=== PATIENT | female | born 1935 | race Caucasian/White ===

== ENCOUNTER → 2017-01-21 | Outpatient (CLI) | payer MEDICARE ==
[2015-02-09 12:30] VITALS: BP 129/75
[~2017-01-21] MED LIST: LISI40TA PO; METF500T4 PO; METO50TA2 PO; PRAV40TA2 PO
--- NOTE | 2017-01-21 14:28 | RAD ---
DATE: 01/21/2017. EXAM: DIGITAL SCREEN BILAT W/CAD HISTORY: Screening COMPARISON: One year earlier This study was interpreted with the benefit of Computerized Aided Detection (CAD). FINDINGS: The breast parenchyma shows scattered fibroglandular densities. Breast parenchyma level B. There has not been a significant change in the appearance of the breasts compared to the previous exam. Occasional benign-appearing calcifications are noted. Biopsy clips are noted in the left breast. Lymph nodes are noted in both axilla IMPRESSION: Benign findings BI-RADS CATEGORY: 2 BENIGN FINDING(S) RECOMMENDED FOLLOW-UP: 12M 12 MONTH FOLLOW-UP PQRS compliance statement: Patient information was entered into a reminder system with a target due date 01/21/2018 for the next mammogram. Mammography is a sensitive method for finding small breast cancers, but it does not detect them all and is not a substitute for careful clinical examination. A negative mammogram does not negate a clinically suspicious finding and should not result in delay in biopsying a clinically suspicious abnormality. "Our facility is accredited by the [employer] Mammography [employer]."
== END | disposition home or self-care (01) ==
LOC: MAMMO 12:50
PROVIDERS: ATTEND Family Medicine
DX: Z12.31 Encounter for screening mammogram for malignant neoplasm of breast (principal)
CPT/HCPCS: G0202; 77067

== ENCOUNTER → 2018-02-09 | Outpatient (CLI) | payer MEDICARE | END | disposition home or self-care (01) | LOC: MAMMO 13:10 | DX: Z12.31 Encounter for screening mammogram for malignant neoplasm of breast (principal) | CPT/HCPCS: 77063; 77067 ==

== ENCOUNTER 2018-02-15 02:57 | Inpatient (IN) | payer MEDICARE ==
[2018-02-15] MEDS ORDERED: ONDANSETRON PF 4 MG/2 ML VIAL. (03:20)
[2018-02-15] MEDS: IV NORMAL SALINE 1000ML BAG 1,000 ML IV ×5 (03:25→21:31)
[2018-02-15] MEDS: ONDANSETRON PF 4 MG/2 ML VIAL. IV (03:25)
[2018-02-15 03:27] LABS: BASO % 0 % (0-3); EOS % 0 % (0-3); HEMATOCRIT 37.2 % (36.0-47.0); LYMPH % 11 % (24-48); MEAN CORPUSCULAR HEMOGLOBIN 27 pg (25-35); MEAN CORPUSCULAR HGB CONC 32 g/dL (31-37); MEAN CORPUSCULAR VOLUME 85 fL (79-100); MONO # 0.2 x10^3/uL (0.0-1.1); MONO % 2 % (0-9); NEUT # 7.9 x10^3uL (1.8-7.7); NEUT % 87 % (31-73); PLATELET COUNT 424 x10^3/uL (140-400); RED CELL DISTRIBUTION WIDTH 16.2 % (11.5-14.5); WHITE BLOOD COUNT 9.1 x10^3/uL (4.0-11.0)
[2018-02-15 03:28] LABS: ADD MAN DIFF? YES
[2018-02-15 03:38] LABS: ANION GAP 13 (6-14); BLOOD UREA NITROGEN 17 mg/dL (7-20); BUN/CREATININE RATIO 14 (6-20); CALCIUM 9.9 mg/dL (8.5-10.1); CARBON DIOXIDE 30 mmol/L (21-32); CHLORIDE 103 mmol/L (98-107); CREATININE 1.2 mg/dL (0.6-1.0); GFR 43.2; GLUCOSE 354 mg/dL (70-99); POTASSIUM 3.3 mmol/L (3.5-5.1); SODIUM 146 mmol/L (136-145)
[2018-02-15 03:44] LABS: ALBUMIN 3.6 g/dL (3.4-5.0); ALBUMIN/GLOBULIN RATIO 0.8 (1.0-1.7); ALK PHOS 76 U/L (46-116); ALT (SGPT) 21 U/L (14-59); LIPASE 199 U/L (73-393); TOTAL BILIRUBIN 0.6 mg/dL (0.2-1.0); TOTAL PROTEIN 8.2 g/dL (6.4-8.2)
[2018-02-15 03:47] LABS: TROPONINI < 0.017 ng/mL (0.000-0.055)
[2018-02-15] MEDS: FAMOTIDINE 20 MG/2 ML VIAL IVP ×2 (03:57→09:24)
[2018-02-15] MEDS: fentaNYL PF VIAL 100 MCG/2 ML VIAL IV ×2 (03:57→05:10)
[2018-02-15 03:59] LABS: AST (SGOT) 15 U/L (15-37)
[2018-02-15 04:03] LABS: % LYMPHS 12 % (24-48); % MONOS 2 % (0-10); % SEGS 86 % (35-66); PLT ESTIMATE ADEQUATE (ADEQUATE)
[2018-02-15] MEDS: METOCLOPRAMIDE HCL 10 MG/2 ML VIAL. IV (04:15)
[2018-02-15] MEDS: cloNIDine HCL 0.2 MG TABLET PO (04:40)
[2018-02-15] MEDS ORDERED: cloNIDine HCL 0.1 MG TABLET (04:44)
[2018-02-15] MEDS ORDERED: ONDANSETRON PF 4 MG/2 ML VIAL. IV (05:45)
[2018-02-15] MEDS ORDERED: fentaNYL PF VIAL 100 MCG/2 ML VIAL IV ×3 (05:45→13:30)
[2018-02-15] MEDS: C.DIFF MED SCREEN BY RX. MC (09:26)
[2018-02-15 13:11] LABS: POC GLUCOSE 163 mg/dL (70-99)
[2018-02-15] MEDS: IV RINGERS,LACTATED 1000ML 1,000 ML IV ×2 (13:21→21:21)
[2018-02-15] MEDS ORDERED: LIDOCAINE 1% PF 2 ML VIAL. ID (13:30)
[2018-02-15] MEDS ORDERED: MIDAZOLAM HCL/PF 2 MG/2 ML VIAL. IV (13:30)
[2018-02-15] MEDS ORDERED: LIDOCAINE 2% 100 MG/5 ML SYRINGE. (13:56)
[2018-02-15] MEDS ORDERED: PROPOFOL 20 ML IV (13:56)
[2018-02-15] MEDS: PANTOPRAZOLE 40 MG TABLET.DR. PO (16:10)
[2018-02-15] MEDS: POLYETHYLENE GLYCOL 3350 17 GM PACKET. PO (16:10)
[2018-02-15] MEDS: metFORMIN 500 MG TABLET PO (21:31)
[2018-02-15] MEDS: ATORVASTATIN CALCIUM 20 MG TABLET PO (21:31)
[2018-02-15] MEDS: METOPROLOL TART IMMED RELEASE 50 MG TABLET. PO (21:31)
[2018-02-16] MEDS: IV NORMAL SALINE 1000ML BAG 1,000 ML IV (01:45)
[2018-02-16 04:57] LABS: ADD MAN DIFF? NO
[2018-02-16 05:03] LABS: BASO % 1 % (0-3); EOS % 0 % (0-3); HEMATOCRIT 28.7 % (36.0-47.0); HEMOGLOBIN 9.3 g/dL (12.0-15.5); LYMPH # 2.5 x10^3/uL (1.0-4.8); LYMPH % 29 % (24-48); MEAN CORPUSCULAR HEMOGLOBIN 28 pg (25-35); MEAN CORPUSCULAR HGB CONC 33 g/dL (31-37); MEAN CORPUSCULAR VOLUME 86 fL (79-100); MONO # 0.6 x10^3/uL (0.0-1.1); MONO % 7 % (0-9); NEUT # 5.5 x10^3uL (1.8-7.7); NEUT % 63 % (31-73); PLATELET COUNT 303 x10^3/uL (140-400); RED BLOOD COUNT 3.35 x10^6/uL (3.50-5.40); RED CELL DISTRIBUTION WIDTH 16.5 % (11.5-14.5); WHITE BLOOD COUNT 8.7 x10^3/uL (4.0-11.0)
[2018-02-16 05:39] LABS: ALBUMIN 2.6 g/dL (3.4-5.0); ALBUMIN/GLOBULIN RATIO 0.8 (1.0-1.7); ALK PHOS 58 U/L (46-116); ALT (SGPT) 18 U/L (14-59); ANION GAP 7 (6-14); AST (SGOT) 25 U/L (15-37); BLOOD UREA NITROGEN 13 mg/dL (7-20); BUN/CREATININE RATIO 14 (6-20); CALCIUM 8.3 mg/dL (8.5-10.1); CARBON DIOXIDE 25 mmol/L (21-32); CHLORIDE 111 mmol/L (98-107); CREATININE 0.9 mg/dL (0.6-1.0); GFR 60.2; GLUCOSE 121 mg/dL (70-99); POTASSIUM 3.3 mmol/L (3.5-5.1); SODIUM 143 mmol/L (136-145); TOTAL BILIRUBIN 0.6 mg/dL (0.2-1.0); TOTAL PROTEIN 5.8 g/dL (6.4-8.2)
[2018-02-16] MEDS: SIMETHICONE/SOD BICARB/CITRIC ACID PACKET. PO (07:30)
[2018-02-16] MEDS: BARIUM SULFATE 340 GM SUSPENSION. PO (07:30)
[2018-02-16] MEDS: BARIUM SULFATE 60% 355 ML SUSP PO (07:53)
[2018-02-16] MEDS: metFORMIN 500 MG TABLET PO ×2 (08:05→17:00)
[2018-02-16] MEDS: PANTOPRAZOLE 40 MG TABLET.DR. PO (08:05)
[2018-02-16] MEDS: POLYETHYLENE GLYCOL 3350 17 GM PACKET. PO (08:06)
[2018-02-16] MEDS: METOPROLOL TART IMMED RELEASE 50 MG TABLET. PO ×2 (08:06→20:57)
[2018-02-16] MEDS: LISINOPRIL 20 MG TABLET PO (08:07)
[2018-02-16] MEDS: ATORVASTATIN CALCIUM 20 MG TABLET PO (20:57)
[2018-02-17] MEDS ORDERED: LIDOCAINE 1% PF 2 ML VIAL. ID (07:00)
[2018-02-17] MEDS ORDERED: HYDROmorphone 2 MG/ML VIAL IV (07:00)
[2018-02-17] MEDS ORDERED: fentaNYL PF VIAL 100 MCG/2 ML VIAL IV ×2 (07:00)
[2018-02-17] MEDS ORDERED: PROCHLORPERAZINE 10 MG/2 ML VIAL. IV (07:00)
[2018-02-17] MEDS ORDERED: ONDANSETRON PF 4 MG/2 ML VIAL. IV ×2 (07:00→12:45)
[2018-02-17] MEDS ORDERED: MORPHINE SULFATE 4 MG/ML DISP.SYRIN. IV (07:00)
[2018-02-17] MEDS: PANTOPRAZOLE 40 MG TABLET.DR. PO (07:30)
[2018-02-17] MEDS: metFORMIN 500 MG TABLET PO ×2 (08:00→17:00)
[2018-02-17] MEDS ORDERED: fentaNYL PF VIAL 250 MCG/5 ML VIAL (08:04)
[2018-02-17] MEDS ORDERED: ROCURONIUM 100 MG/10 ML VIAL. (08:05)
[2018-02-17] MEDS ORDERED: SUCCINYLCHOLINE 200 MG/10 ML VIAL. (08:05)
[2018-02-17] MEDS ORDERED: MIDAZOLAM HCL/PF 2 MG/2 ML VIAL. (08:05)
[2018-02-17] MEDS: IV RINGERS,LACTATED 1000ML 1,000 ML IV ×2 (08:06→11:48)
[2018-02-17] MEDS ORDERED: DESFLURANE > 120 MINUTES IH (08:08)
[2018-02-17] MEDS ORDERED: DEXAMETHASONE SOD PHOS 20 MG/5 ML VIAL. (08:09)
[2018-02-17] MEDS ORDERED: PROPOFOL 20 ML IV (08:09)
[2018-02-17] MEDS ORDERED: FAMOTIDINE 20 MG/2 ML VIAL (08:09)
[2018-02-17] MEDS ORDERED: PHENYLEPHRINE 10 MG/ML VIAL. (08:09)
[2018-02-17] MEDS ORDERED: ONDANSETRON PF 4 MG/2 ML VIAL. (08:09)
[2018-02-17 08:11] LABS: POC GLUCOSE 122 mg/dL (70-99)
[2018-02-17] MEDS: SCOPOLAMINE 1.5MG PATCH. TD (08:17)
[2018-02-17] MEDS ORDERED: ESMOLOL 100 MG/10 ML VIAL. IV ×2 (08:31→08:38)
[2018-02-17] MEDS ORDERED: LABETALOL 20 MG/4 ML DISP.SYRIN. (08:33)
[2018-02-17] MEDS: LISINOPRIL 20 MG TABLET PO (09:00)
[2018-02-17] MEDS: POLYETHYLENE GLYCOL 3350 17 GM PACKET. PO (09:00)
[2018-02-17] MEDS: METOPROLOL TART IMMED RELEASE 50 MG TABLET. PO ×2 (09:00→20:52)
[2018-02-17] MEDS: BUPIVAC MPF-EPI 0.5%-1:200000 30 ML VIAL. INJ (09:03)
[2018-02-17] MEDS ORDERED: GLYCOPYRROLATE 1 MG/5 ML VIAL. (09:42)
[2018-02-17] MEDS ORDERED: NEOSTIGMINE 10 MG/10 ML VIAL. (09:42)
[2018-02-17 12:09] LABS: POC GLUCOSE 200 mg/dL (70-99)
[2018-02-17] MEDS: IV 1/2 NORMAL SALINE 1,000 ML IV (13:12)
[2018-02-17] MEDS: fentaNYL PF VIAL 100 MCG/2 ML VIAL IV ×4 (13:55→22:40)
[2018-02-17 17:07] LABS: POC GLUCOSE 191 mg/dL (70-99)
[2018-02-17] MEDS: ATORVASTATIN CALCIUM 20 MG TABLET PO (20:50)
[2018-02-18] MEDS: IV 1/2 NORMAL SALINE 1,000 ML IV ×2 (02:53→17:09)
[2018-02-18] MEDS: PANTOPRAZOLE 40 MG TABLET.DR. PO (07:44)
[2018-02-18 08:10] LABS: POC GLUCOSE 136 mg/dL (70-99)
[2018-02-18] MEDS: POLYETHYLENE GLYCOL 3350 17 GM PACKET. PO (08:59)
[2018-02-18] MEDS: metFORMIN 500 MG TABLET PO ×2 (09:00→17:10)
[2018-02-18] MEDS: METOPROLOL TART IMMED RELEASE 50 MG TABLET. PO ×2 (09:00→21:45)
[2018-02-18] MEDS: LISINOPRIL 20 MG TABLET PO (09:02)
[2018-02-18] MEDS: fentaNYL PF VIAL 100 MCG/2 ML VIAL IV ×4 (09:05→17:10)
[2018-02-18] MEDS ORDERED: HYDROcodon/APAP 7.5/325MG ORAL 15 ML SOLUTION PO (10:30)
[2018-02-18 16:30] LABS: POC GLUCOSE 169 mg/dL (70-99)
[2018-02-18 20:02] LABS: POC GLUCOSE 134 mg/dL (70-99)
[2018-02-18 21:08] LABS: POC GLUCOSE 176 mg/dL (70-99)
[2018-02-18] MEDS: ATORVASTATIN CALCIUM 20 MG TABLET PO (21:44)
[2018-02-19] MEDS: fentaNYL PF VIAL 100 MCG/2 ML VIAL IV (00:57)
[2018-02-19] MEDS: IV 1/2 NORMAL SALINE 1,000 ML IV ×2 (06:46→18:05)
[2018-02-19] MEDS: PANTOPRAZOLE 40 MG TABLET.DR. PO (06:46)
[2018-02-19 07:45] LABS: POC GLUCOSE 130 mg/dL (70-99)
[2018-02-19] MEDS: metFORMIN 500 MG TABLET PO ×2 (08:24→17:24)
[2018-02-19] MEDS: METOPROLOL TART IMMED RELEASE 50 MG TABLET. PO ×2 (08:24→21:00)
[2018-02-19] MEDS: LISINOPRIL 20 MG TABLET PO (08:25)
[2018-02-19] MEDS: POLYETHYLENE GLYCOL 3350 17 GM PACKET. PO (08:25)
[2018-02-19 16:43] LABS: POC GLUCOSE 131 mg/dL (70-99)
[2018-02-19] MEDS: ATORVASTATIN CALCIUM 20 MG TABLET PO (21:00)
[2018-02-19 21:14] LABS: POC GLUCOSE 181 mg/dL (70-99)
[2018-02-20 05:31] LABS: ADD MAN DIFF? NO
[2018-02-20 05:36] LABS: BASO % 1 % (0-3); EOS # 0.2 x10^3/uL (0.0-0.7); EOS % 2 % (0-3); HEMATOCRIT 31.1 % (36.0-47.0); HEMOGLOBIN 10.3 g/dL (12.0-15.5); LYMPH # 1.8 x10^3/uL (1.0-4.8); LYMPH % 22 % (24-48); MEAN CORPUSCULAR HEMOGLOBIN 28 pg (25-35); MEAN CORPUSCULAR HGB CONC 33 g/dL (31-37); MEAN CORPUSCULAR VOLUME 85 fL (79-100); MONO # 0.8 x10^3/uL (0.0-1.1); MONO % 10 % (0-9); NEUT # 5.4 x10^3uL (1.8-7.7); NEUT % 65 % (31-73); PLATELET COUNT 330 x10^3/uL (140-400); RED BLOOD COUNT 3.67 x10^6/uL (3.50-5.40); RED CELL DISTRIBUTION WIDTH 16.3 % (11.5-14.5); WHITE BLOOD COUNT 8.2 x10^3/uL (4.0-11.0)
[2018-02-20 06:17] LABS: ANION GAP 6 (6-14); BLOOD UREA NITROGEN 8 mg/dL (7-20); CALCIUM 8.7 mg/dL (8.5-10.1); CARBON DIOXIDE 28 mmol/L (21-32); CHLORIDE 106 mmol/L (98-107); CREATININE 0.9 mg/dL (0.6-1.0); GFR 60.2; GLUCOSE 136 mg/dL (70-99); POTASSIUM 3.7 mmol/L (3.5-5.1); SODIUM 140 mmol/L (136-145)
[2018-02-20] MEDS: IV 1/2 NORMAL SALINE 1,000 ML IV (07:25)
[2018-02-20 08:27] LABS: POC GLUCOSE 128 mg/dL (70-99)
[2018-02-20] MEDS: POLYETHYLENE GLYCOL 3350 17 GM PACKET. PO (09:00)
[2018-02-20] MEDS: LISINOPRIL 20 MG TABLET PO (09:23)
[2018-02-20] MEDS: METOPROLOL TART IMMED RELEASE 50 MG TABLET. PO (09:23)
[2018-02-20] MEDS: PANTOPRAZOLE 40 MG TABLET.DR. PO (09:24)
[2018-02-20] MEDS: metFORMIN 500 MG TABLET PO (09:24)
[2018-02-20 11:08] LABS: POC GLUCOSE 134 mg/dL (70-99)
== END 2018-02-20 12:25 | disposition home or self-care (01) | DRG 327 ==
LOC: ER 02:57 → 5 NORTH 04:00
PROC: 0DJ08ZZ Inspection of Upper Intestinal Tract, Via Natural or Artificial Opening Endoscopic (ICD-10-PCS; principal; 2018-02-15 14:09)
PROC: 0BUT4JZ Supplement Diaphragm with Synthetic Substitute, Percutaneous Endoscopic Approach (ICD-10-PCS; 2018-02-15 14:09)
PROC: 0DV44ZZ Restriction of Esophagogastric Junction, Percutaneous Endoscopic Approach (ICD-10-PCS; 2018-02-15 14:09)
DX: K44.0 Diaphragmatic hernia with obstruction, without gangrene (principal); K22.10 Ulcer of esophagus without bleeding; E10.9 Type 1 diabetes mellitus without complications; K76.0 Fatty (change of) liver, not elsewhere classified; E78.5 Hyperlipidemia, unspecified; I10 Essential (primary) hypertension; K21.9 Gastro-esophageal reflux disease without esophagitis; K57.90 Diverticulosis of intestine, part unspecified, without perforation or abscess without bleeding; Z80.0 Family history of malignant neoplasm of digestive organs; Z90.49 Acquired absence of other specified parts of digestive tract; Z90.710 Acquired absence of both cervix and uterus; Z88.5 Allergy status to narcotic agent; K59.00 Constipation, unspecified
CPT/HCPCS: 36415; 74176; 74241; 76376; 80048; 80053; 82962; 83690; 84484; 85007; 85025; 88302; 93005; 96374; 96375; 96376; 99285; 99285-25; C1781; J0330; J0690; J1100; J2250; J2405; J2704; J2710; J2765; J3010; J3490; J7030; J7120; S0028

== ENCOUNTER → 2019-03-31 | Outpatient (CLI) | payer MEDICARE ==
[2018-02-20 11:00] VITALS: BP 167/73
[~2019-03-31] MED LIST changes: +LISI-130 PO; -LISI40TA PO; +METF500T16 PO; -METF500T4 PO; -METO50TA2 PO; +METO50TA6 PO; +OMEP20TA63 PO
--- NOTE | 2019-04-01 08:49 | RAD ---
DATE: 03/31/2019 EXAM: MAMMO LUIS FERNANDO SCREENING BILATERAL HISTORY: Routine screening COMPARISON: 02/09/2018 This study was interpreted with the benefit of Computerized Aided Detection (CAD). Breast Density: SCATTERED The breast parenchyma shows scattered fibroglandular densities. Breast parenchyma level B. FINDINGS: 2-D and 3-D tomosynthesis imaging was performed in CC and MLO projections. The breasts are heterogeneous in a nodular pattern. No new or enlarging breast densities are seen. No spiculated mass or architectural distortion is evident. Benign type calcifications are again noted. No suspicious microcalcifications have developed. IMPRESSION: Stable mammograms without evidence of malignancy. BI-RADS CATEGORY: 2 BENIGN FINDING(S) RECOMMENDED FOLLOW-UP: 12M 12 MONTH FOLLOW-UP PQRS compliance statement: Patient information was entered into a reminder system with a target due date for the next mammogram. Mammography is a sensitive method for finding small breast cancers, but it does not detect them all and is not a substitute for careful clinical examination. A negative mammogram does not negate a clinically suspicious finding and should not result in delay in biopsying a clinically suspicious abnormality. "Our facility is accredited by the [employer] Mammography [employer]."
== END | disposition home or self-care (01) ==
LOC: MAMMO 12:20
PROVIDERS: ATTEND Family Medicine
DX: Z12.31 Encounter for screening mammogram for malignant neoplasm of breast (principal); N64.89 Other specified disorders of breast
CPT/HCPCS: 77063; 77067

== ENCOUNTER 2019-04-26 04:25 | Emergency (ER) | payer MEDICARE ==
[~2019-04-26] VITALS: Ht 162.6 cm; Wt 63.5 kg
[2019-04-26 04:48] LABS: BASO # 0.1 x10^3/uL (0.0-0.2); BASO % 1 % (0-3); EOS # 0.3 x10^3/uL (0.0-0.7); EOS % 4 % (0-3); HEMATOCRIT 42.7 % (36.0-47.0); HEMOGLOBIN 14.4 g/dL (12.0-15.5); LYMPH # 2.7 x10^3/uL (1.0-4.8); LYMPH % 40 % (24-48); MEAN CORPUSCULAR HEMOGLOBIN 31 pg (25-35); MEAN CORPUSCULAR HGB CONC 34 g/dL (31-37); MEAN CORPUSCULAR VOLUME 92 fL (79-100); MONO # 0.5 x10^3/uL (0.0-1.1); MONO % 8 % (0-9); NEUT # 3.2 x10^3uL (1.8-7.7); NEUT % 47 % (31-73); PLATELET COUNT 325 x10^3/uL (140-400); RED BLOOD COUNT 4.65 x10^6/uL (3.50-5.40); RED CELL DISTRIBUTION WIDTH 13.2 % (11.5-14.5); WHITE BLOOD COUNT 6.8 x10^3/uL (4.0-11.0)
[2019-04-26 05:00] LABS: CALCIUM 10.2 mg/dL (8.5-10.1); GFR 53.1; POTASSIUM 3.7 mmol/L (3.5-5.1)
[2019-04-26 05:02] LABS: PROTHROMBIN TIME PATIENT 11.4 SEC (11.7-14.0)
--- NOTE | 2019-04-26 05:03 | PHYS DOC ---
Past Medical History Past Medical History: Diabetes-Type II, High Cholesterol, Hypertension, Other Additional Past Medical Histor: Hiatal Hernia Past Surgical History: Cholecystectomy, , Hysterectomy Alcohol Use: None Drug Use: None Adult General Chief Complaint Chief Complaint: CHEST WALL PAIN HPI HPI Patient is a 84 year old female presents with chest pain. She's had it for 3 days she says it feels sore when she touches the left axillary area as she does not recall specific trauma it hurts more when she is rolling over in bed it's hard to find a comfortable position it also hurts when she lifts her left arm up over her head. She did housework yesterday and the exertion did not lead to increased symptoms. The pain has been constant it is not really pleuritic she is not short of breath. She came to the emergency room tonight at 4 AM because she was having trouble getting comfortable in her bed. She is a diabetic no previous cardiac history. Review of Systems Review of Systems Constitutional: Denies fever or chills [] Eyes: Denies change in visual acuity, redness, or eye pain [] HENT: Denies nasal congestion or sore throat [] Respiratory: Denies cough or shortness of breath [] Cardiovascular: No additional information not addressed in HPI [] GI: Denies abdominal pain, nausea, vomiting, bloody stools or diarrhea [] : Denies dysuria or hematuria [] Neurologic: Denies headache, focal weakness or sensory changes [] Endocrine: Denies polyuria or polydipsia [] All other systems were reviewed and found to be within normal limits, except as documented in this note. Allergies Allergies Allergies Coded Allergies Type Severity Reaction Last Updated Verified morphine Adverse Reaction Mild Nausea and Vomiting 02/15/18 Yes Physical Exam Physical Exam Constitutional: Well developed, well nourished, no acute distress, non-toxic appearance. [] HENT: Normocephalic, atraumatic, bilateral external ears normal, oropharynx moist, no oral exudates, nose normal. [] Eyes: PERRLA, EOMI, conjunctiva normal, no discharge. [] Neck: Normal range of motion, no tenderness, supple, no stridor. [] Cardiovascular:Heart rate regular rhythm, no murmur []there is chest wall appears well tenderness to palpation over the left midaxillary line obvious rash was identified. No crepitus. Pain is reproduced with sitting up in the chair Lungs & Thorax: Bilateral breath sounds clear to auscultation [] Abdomen: Bowel sounds normal, soft, no tenderness, no masses, no pulsatile masses. [] Skin: Warm, dry, no erythema, no rash. [] Back: No tenderness, no CVA tenderness. [] Extremities: No tenderness, no cyanosis, no clubbing, ROM intact, no edema. [] Neurologic: Alert and oriented X 3, normal motor function, normal sensory f unction, no focal deficits noted. [] Psychologic: Affect normal, judgement normal, mood normal. [] Current Patient Data Vital Signs Vital Signs Date Time Temp Pulse Resp B/P (MAP) Pulse Ox O2 Delivery O2 Flow Rate FiO2 04/26/19 04:35 97.9 80 17 198/105 (136) 98 Room Air 97.9 Blood pressure was slowly coming down in the emergency room. Lab Values Laboratory Tests Test 04/26/19 04:30 White Blood Count 6.8 x10^3/uL (4.0-11.0) Red Blood Count 4.65 x10^6/uL (3.50-5.40) Hemoglobin 14.4 g/dL (12.0-15.5) Hematocrit 42.7 % (36.0-47.0) Mean Corpuscular Volume 92 fL (79-100) Mean Corpuscular Hemoglobin 31 pg (25-35) Mean Corpuscular Hemoglobin Concent 34 g/dL (31-37) Red Cell Distribution Width 13.2 % (11.5-14.5) Platelet Count 325 x10^3/uL (140-400) Neutrophils (%) (Auto) 47 % (31-73) Lymphocytes (%) (Auto) 40 % (24-48) Monocytes (%) (Auto) 8 % (0-9) Eosinophils (%) (Auto) 4 % (0-3) H Basophils (%) (Auto) 1 % (0-3) Neutrophils # (Auto) 3.2 x10^3uL (1.8-7.7) Lymphocytes # (Auto) 2.7 x10^3/uL (1.0-4.8) Monocytes # (Auto) 0.5 x10^3/uL (0.0-1.1) Eosinophils # (Auto) 0.3 x10^3/uL (0.0-0.7) Basophils # (Auto) 0.1 x10^3/uL (0.0-0.2) Prothrombin Time 11.4 SEC (11.7-14.0) L Prothrombin Time INR 0.9 (0.8-1.1) D-Dimer (Ivelisse) 0.30 ug/mlFEU (0.00-0.50) Sodium Level 142 mmol/L (136-145) Potassium Level 3.7 mmol/L (3.5-5.1) Chloride Level 105 mmol/L (98-107) Carbon Dioxide Level 25 mmol/L (21-32) Anion Gap 12 (6-14) Blood Urea Nitrogen 18 mg/dL (7-20) Creatinine 1.0 mg/dL (0.6-1.0) Estimated GFR (Cockcroft-Gault) 53.1 BUN/Creatinine Ratio 18 (6-20) Glucose Level 138 mg/dL (70-99) H Calcium Level 10.2 mg/dL (8.5-10.1) H Total Bilirubin 0.3 mg/dL (0.2-1.0) Aspartate Amino Transferase (AST) 18 U/L (15-37) Alanine Aminotransferase (ALT) 26 U/L (14-59) Alkaline Phosphatase 70 U/L (46-116) Troponin I Quantitative < 0.017 ng/mL (0.000-0.055) Total Protein 8.0 g/dL (6.4-8.2) Albumin 4.0 g/dL (3.4-5.0) Albumin/Globulin Ratio 1.0 (1.0-1.7) Lipase 342 U/L (73-393) Laboratory Tests 04/26/19 04:30 Laboratory Tests 04/26/19 04:30 EKG EKG Normal sinus rhythm rate 84 no ischemic changes normal EKG QTc 448 interpreted by me time of encounter.[] Radiology/Procedures Radiology/Procedures [] Impressions: Chest x-ray my interpretation negative acute Course & Med Decision Making Course & Med Decision Making Pertinent Labs and Imaging studies reviewed. (See chart for details) []84-year-old female history of diabetes hypertension hyperlipidemia presenting with a story which is most consistent with very likely chest wall pain. Very atypical for any type of acute coronary syndrome it is not exertional it always worse when she is rolling over in bed it is reproducible on examination the emergency room. EKG and troponin are in process. D-dimer negative. ekg /trop neg ddimer neg cxr possilbe nipple shadow, they're repeating that as we speak. Otherwise she is going to be safe for discharge home this does not sound like cardiac pain to me at all. Patient is very well-appearing and was advised to follow-up with her primary care doctor in the next few days. Dragon Disclaimer Dragon Disclaimer This electronic medical record was generated, in whole or in part, using a voice recognition dictation system. Departure Departure Impression: Primary Impression: Chest pain Disposition: HOME, SELF-CARE Condition: STABLE Referrals: SHAWANDA TERRY MD (PCP) KIRSTY DESHPANDE MD Apr 26, 2019 05:03
[2019-04-26 05:05] LABS: TOTAL BILIRUBIN 0.3 mg/dL (0.2-1.0)
--- NOTE | 2019-04-26 05:45 | RAD ---
INDICATION: Chest pain COMPARISON: January 2015 FINDINGS: Single view of chest obtained. Hypoexpanded examination the lungs. Calcific atherosclerosis with mild enlargement the cardiac silhouette. Nodular opacity projecting of the left lower thorax laterally. No evidence of pneumothorax. IMPRESSION: 1. Hypoexpanded exam with mild interstitial prominence bilaterally. This could be secondary to vascular crowding from hypoexpansion however mild pulmonary vascular congestion not excluded. 2. Nodular structure at the left lower chest laterally. Could be secondary to a nipple shadow but a pulmonary nodule cannot be excluded. If further characterization is desired a nipple marker could be placed and repeat image obtained to confirm whether this represents nipple shadow or not. Electronically signed by: Cruzito Richter MD (04/26/2019 5:43 AM) [id number]
--- NOTE | 2019-04-26 05:55 | EKG ---
[facility] [address] [place] [address] Test Date: 2019-04-26 Test Time: 04:34:10 Pat Name: BRYANT TURNER Department: Room: Gender: F [employer]: : 1935 Requested By: KIRSTY DESHPANDE Order Number: [id number] Reading MD: Measurements Intervals [place] Rate: 84 P: 38 WV: 180 QRS: 19 QRSD: 86 T: 16 QT: 376 QTc: 448 Interpretive Statements SINUS RHYTHM NORMAL ECG RI6.01 Unconfirmed report No previous ECG available for comparison
[2019-04-26 06:26] VITALS: BP 177/100
--- NOTE | 2019-04-26 07:54 | RAD ---
EXAM: CHEST 1 VIEW. HISTORY: Lung nodule. COMPARISON: 04/26/2019. FINDINGS: A frontal view of the chest is obtained. A nipple marker is placed on the left. It corresponds with the nodule of concern. There are no confluent infiltrates. There is no pneumothorax or pleural effusion. The heart is not enlarged. Surgical clips are noted in the left upper quadrant. There are atherosclerotic calcifications of the aorta. A small to moderate hiatal hernia is suspected. IMPRESSION: 1. The left basilar nodule corresponds with a nipple marker. No clearly suspicious nodules. 2. Suspect a moderate hiatal hernia. Electronically signed by: Marii Morales MD (04/26/2019 7:51 AM) [facility]
== END 2019-04-26 06:30 | disposition home or self-care (01) ==
LOC: ER 04:25
DX: R07.89 Other chest pain (principal); E11.9 Type 2 diabetes mellitus without complications; E78.00 Pure hypercholesterolemia, unspecified; I10 Essential (primary) hypertension; Z88.5 Allergy status to narcotic agent
CPT/HCPCS: 36415; 71045; 80053; 83690; 84484; 85025; 85379; 85610; 93005; 99285-25

== ENCOUNTER 2020-05-13 02:05 | Emergency (ER) | payer MEDICARE ==
[~2020-05-13] VITALS: Ht 162.6 cm; Wt 63.1 kg
[2020-05-13] MEDS ORDERED: IV NORMAL SALINE 1000ML BAG 1,000 ML IV ONE (02:30)
[2020-05-13] MEDS ORDERED: METOCLOPRAMIDE HCL 10 MG/2 ML VIAL. IVP ONE (03:00)
[2020-05-13] MEDS ORDERED: FAMOTIDINE 20 MG/2 ML VIAL IVP ONE (03:00)
[2020-05-13] MEDS ORDERED: KETOROLAC 15 MG/ML VIAL. IVP ONE (03:00)
[2020-05-13 03:34] LABS: BASO % 1 % (0-3); EOS % 0 % (0-3); LYMPH % 25 % (24-48); MEAN CORPUSCULAR HEMOGLOBIN 32 pg (25-35); MEAN CORPUSCULAR HGB CONC 34 g/dL (31-37); MEAN CORPUSCULAR VOLUME 93 fL (79-100); MONO # 0.4 x10^3/uL (0.0-1.1); MONO % 4 % (0-9); NEUT # 5.7 x10^3/uL (1.8-7.7); NEUT % 70 % (31-73); PLATELET COUNT 326 x10^3/uL (140-400); RED BLOOD COUNT 4.07 x10^6/uL (3.50-5.40); RED CELL DISTRIBUTION WIDTH 13.3 % (11.5-14.5); WHITE BLOOD COUNT 8.1 x10^3/uL (4.0-11.0)
--- NOTE | 2020-05-13 03:34 | RAD ---
Examination: CT of the abdomen pelvis without contrast HISTORY: History of right flank pain COMPARISON: 02/15/2018 TECHNIQUE: Axial CT images of the abdomen pelvis were performed without contrast. Coronal and sagittal reformats are performed. Exposure: One or more of the following individualized dose reduction techniques were utilized for this examination: 1. Automated exposure control 2. Adjustment of the mA and/or kV according to patient size 3. Use of iterative reconstruction technique FINDINGS: The bibasilar lungs are clear. No evidence of free air identified in the abdomen. The evaluation of the solid organs is limited due to lack of IV contrast. The evaluation of bowel is limited due to lack of oral contrast. Cystic structure identified in the quadrate lobe of the liver similar to prior exam measuring 2.8 cm. The spleen, adrenals grossly appears unremarkable. Cholecystectomy changes identified. Moderate size hiatal hernia is identified. Basilar pancreas grossly appears unremarkable. Small bowel is nondilated. . Moderate right-sided hydronephrosis and mild right hydroureter identified with a 2.5 mm calculus identified the right ureterovesical junction. Liquid stool identified in the colon. Sigmoid colon diverticulosis. Moderate aortic atherosclerosis. Moderate degenerative changes thoracolumbar spine. IMPRESSION: 1. Moderate right-sided hydronephrosis and mild right hydroureter with a 2.5 mm calculus identified at the right ureterovesical junction. 2. Sigmoid colon diverticulosis. Electronically signed by: Clif Cottrell MD (05/13/2020 3:32 AM) [id number]
[2020-05-13 03:41] LABS: PROTHROMBIN TIME PATIENT 12.5 SEC (11.7-14.0)
[2020-05-13] MEDS ORDERED: TAMSULOSIN 0.4 MG CAP.ER.24H. PO ONE (04:15)
[2020-05-13 04:18] LABS: CALCIUM 8.3 mg/dL (8.5-10.1); CREATININE 1.5 mg/dL (0.6-1.0); GFR 33.2; POTASSIUM 4.2 mmol/L (3.5-5.1)
[2020-05-13 04:24] LABS: ALBUMIN 3.2 g/dL (3.4-5.0); MAGNESIUM 1.8 mg/dL (1.8-2.4); TOTAL BILIRUBIN 0.4 mg/dL (0.2-1.0); TOTAL PROTEIN 6.5 g/dL (6.4-8.2)
[2020-05-13] MEDS ORDERED: fentaNYL PF VIAL 100 MCG/2 ML VIAL IVP ONE (04:30)
[2020-05-13] MEDS ORDERED: ONDANSETRON PF 4 MG/2 ML VIAL. IVP ONE (04:30)
[2020-05-13 05:10] VITALS: BP 176/95
[2020-05-13 05:12] LABS: BILIRUBIN,URINE NEGATIVE (NEG); CLARITY,URINE CLEAR; COLOR,URINE YELLOW; NITRITE,URINE NEGATIVE (NEG); PROTEIN,URINE NEGATIVE (NEG-TRACE); UROBILINOGEN,URINE 0.2 mg/dL (0.2 mg/dL)
[2020-05-13 05:17] LABS: AMORPHOUS SEDIMENT,UR PRESENT /HPF; BACTERIA,URINE 0 /HPF (0-FEW); HYALINE CASTS, URINE MODERATE /HPF; WBC,URINE RARE /HPF (0-4)
[2020-05-13] MEDS ORDERED: TAMS0.4C97 PO (05:35)
[2020-05-13] MEDS ORDERED: ONDA4TAB12 PO (05:35)
[2020-05-13] MEDS ORDERED: HYDR-3164 PO (05:35)
--- NOTE | 2020-05-13 05:36 | PHYS DOC ---
Past Medical History Past Medical History: Diabetes-Type II, Hypertension Additional Past Medical Histor: Hiatal Hernia Past Surgical History: Appendectomy, Cholecystectomy Additional Past Surgical Histo: HERNIA REPAIR Smoking Status: Never Smoker Alcohol Use: None Drug Use: None General Adult EDM: Chief Complaint: ABDOMINAL PAIN HPI: HPI: Patient is a 85 year old female presents with report of right lower quadrant pain with associated nausea and vomiting which started at 0230. Denies trauma. Denies rash. Denies fever/chills. Denies dysuria or hematuria. Past surgical history of appendectomy and cholecystectomy. Review of Systems: Review of Systems: Constitutional: Denies fever or chills Eyes: Denies redness or eye pain HENT: Denies nasal congestion or sore throat Respiratory: Denies cough or shortness of breath Cardiovascular: Denies chest pain or palpitations GI: Reports right abdominal pain, nausea, and vomiting. : Denies dysuria or hematuria Musculoskeletal: Reports right flank pain Integument: Denies rash or skin lesions Neurologic: Denies headache, focal weakness or sensory changes Complete systems were reviewed and found to be within normal limits, except as documented in this note. Current Medications: Current Medications Medications (Trade) Dose Ordered Sig/Michael Start Time Stop Time Status Last Admin Dose Admin Famotidine (Pepcid Vial) 20 mg 1X ONCE 05/13/20 03:00 05/13/20 03:01 DC 05/13/20 03:18 20 MG Fentanyl Citrate (Fentanyl 2ml Vial) 25 mcg 1X ONCE 05/13/20 04:30 05/13/20 04:31 DC 05/13/20 04:15 25 MCG Ketorolac Tromethamine (Toradol 15mg Vial) 15 mg 1X ONCE 05/13/20 03:00 05/13/20 03:01 DC 05/13/20 03:18 15 MG Metoclopramide HCl (Reglan Vial) 10 mg 1X ONCE 05/13/20 03:00 05/13/20 03:01 DC 05/13/20 03:17 10 MG Ondansetron HCl (Zofran) 4 mg 1X ONCE 05/13/20 04:30 05/13/20 04:31 DC 05/13/20 04:15 4 MG Sodium Chloride 1,000 ml @ 1,000 mls/hr 1X ONCE 05/13/20 02:30 05/13/20 03:29 DC 05/13/20 03:17 1,000 MLS/HR Tamsulosin HCl (Flomax) 0.4 mg 1X ONCE 05/13/20 04:15 05/13/20 04:16 DC 05/13/20 05:01 0.4 MG Allergies: Allergies: Allergies Coded Allergies Type Severity Reaction Last Updated Verified morphine Adverse Reaction Mild Nausea and Vomiting 02/15/18 Yes Physical Exam: PE: Constitutional: Well developed, well nourished, no acute distress, non-toxic appearance HENT: Normocephalic, atraumatic Eyes: Conjunctiva normal, no discharge Neck: Normal range of motion, no tenderness, supple Lungs & Thorax: No respiratory distress, equal chest rise and fall Abdomen: Soft, no tenderness Skin: Warm, dry, no erythema, no rash Back: No tenderness, right CVA tenderness Extremities: No tenderness, ROM intact, no edema Neurologic: Alert and oriented X 3, no focal deficits noted Psychologic: Affect normal, judgment normal Current Patient Data: Labs: Laboratory Tests Test 05/13/20 03:20 05/13/20 04:05 05/13/20 05:05 White Blood Count 8.1 x10^3/uL (4.0-11.0) Red Blood Count 4.07 x10^6/uL (3.50-5.40) Hemoglobin 13.0 g/dL (12.0-15.5) Hematocrit 38.0 % (36.0-47.0) Mean Corpuscular Volume 93 fL (79-100) Mean Corpuscular Hemoglobin 32 pg (25-35) Mean Corpuscular Hemoglobin Concent 34 g/dL (31-37) Red Cell Distribution Width 13.3 % (11.5-14.5) Platelet Count 326 x10^3/uL (140-400) Neutrophils (%) (Auto) 70 % (31-73) Lymphocytes (%) (Auto) 25 % (24-48) Monocytes (%) (Auto) 4 % (0-9) Eosinophils (%) (Auto) 0 % (0-3) Basophils (%) (Auto) 1 % (0-3) Neutrophils # (Auto) 5.7 x10^3/uL (1.8-7.7) Lymphocytes # (Auto) 2.0 x10^3/uL (1.0-4.8) Monocytes # (Auto) 0.4 x10^3/uL (0.0-1.1) Eosinophils # (Auto) 0.0 x10^3/uL (0.0-0.7) Basophils # (Auto) 0.0 x10^3/uL (0.0-0.2) Prothrombin Time 12.5 SEC (11.7-14.0) Prothrombin Time INR 1.0 (0.8-1.1) Activated Partial Thromboplast Time 22 SEC (24-38) L Sodium Level 140 mmol/L (136-145) Potassium Level 4.2 mmol/L (3.5-5.1) Chloride Level 106 mmol/L (98-107) Carbon Dioxide Level 21 mmol/L (21-32) Anion Gap 13 (6-14) Blood Urea Nitrogen 22 mg/dL (7-20) H Creatinine 1.5 mg/dL (0.6-1.0) H Estimated GFR (Cockcroft-Gault) 33.2 BUN/Creatinine Ratio 15 (6-20) Glucose Level 247 mg/dL (70-99) H Calcium Level 8.3 mg/dL (8.5-10.1) L Magnesium Level 1.8 mg/dL (1.8-2.4) Total Bilirubin 0.4 mg/dL (0.2-1.0) Aspartate Amino Transferase (AST) 14 U/L (15-37) L Alanine Aminotransferase (ALT) 21 U/L (14-59) Alkaline Phosphatase 64 U/L (46-116) Total Protein 6.5 g/dL (6.4-8.2) Albumin 3.2 g/dL (3.4-5.0) L Albumin/Globulin Ratio 1.0 (1.0-1.7) Lipase 179 U/L (73-393) Urine Collection Type U cath Urine Color Yellow Urine Clarity Clear Urine pH 5.0 (<5.0-8.0) Urine Specific [place] >=1.030 (1.000-1.030) Urine Protein Negative mg/dL (NEG-TRACE) Urine Glucose (UA) Negative mg/dL (NEG) Urine Ketones (Stick) Trace mg/dL (NEG) Urine Blood Negative (NEG) Urine Nitrite Negative (NEG) Urine Bilirubin Negative (NEG) Urine Urobilinogen Dipstick 0.2 mg/dL (0.2 mg/dL) Urine Leukocyte Esterase Negative (NEG) Urine RBC 1-2 /HPF (0-2) Urine WBC Rare /HPF (0-4) Urine Squamous Epithelial Cells None /LPF Urine Amorphous Sediment Present /HPF Urine Bacteria 0 /HPF (0-FEW) Urine Hyaline Casts Moderate /HPF Urine Mucus Mod /LPF Laboratory Tests 05/13/20 03:20 Laboratory Tests 05/13/20 04:05 Vital Signs: Vital Signs Date Time Temp Pulse Resp B/P (MAP) Pulse Ox O2 Delivery O2 Flow Rate FiO2 05/13/20 04:15 16 96 05/13/20 04:10 94 163/80 (107) 05/13/20 02:32 97.7 Room Air 97.7 EKG: EKG: [] Radiology/Procedures: Radiology/Procedures: PROCEDURE: CT ABDOMEN PELVIS WO CONTRAST Examination: CT of the abdomen pelvis without contrast HISTORY: History of right flank pain COMPARISON: 02/15/2018 TECHNIQUE: Axial CT images of the abdomen pelvis were performed without contrast. Coronal and sagittal reformats are performed. Exposure: One or more of the following individualized dose reduction techniques were utilized for this examination: 1. Automated exposure control 2. Adjustment of the mA and/or kV according to patient size 3. Use of iterative reconstruction technique FINDINGS: The bibasilar lungs are clear. No evidence of free air identified in the abdomen. The evaluation of the solid organs is limited due to lack of IV contrast. The evaluation of bowel is limited due to lack of oral contrast. Cystic structure identified in the quadrate lobe of the liver similar to prior exam measuring 2.8 cm. The spleen, adrenals grossly appears unremarkable. Cholecystectomy changes identified. Moderate size hiatal hernia is identified. Basilar pancreas grossly appears unremarkable. Small bowel is nondilated. . Moderate right-sided hydronephrosis and mild right hydroureter identified with a 2.5 mm calculus identified the right ureterovesical junction. Liquid stool identified in the colon. Sigmoid colon diverticulosis. Moderate aortic atherosclerosis. Moderate degenerative changes thoracolumbar spine. IMPRESSION: 1. Moderate right-sided hydronephrosis and mild right hydroureter with a 2.5 mm calculus identified at the right ureterovesical junction. 2. Sigmoid colon diverticulosis. Electronically signed by: Clif Cottrell MD (05/13/2020 3:32 AM) [id number] Course & Med Decision Making: Course & Med Decision Making Pertinent Labs and Imaging studies reviewed. (See chart for details) Patient presents with flank pain concerning for possible obstructing ureteral calculi. Pain/nausea addressed. IV fluid hydration given. Labs obtained and posted to chart. UA without signs of infection. CT abdomen/pelvis confirmed obstructing ureteral calculi at 2.5 mm. Flomax provided. Patient stable for discharge with outpatient follow-up with PCP. Discussed findings and plan with patient, who acknowledges understanding and agreement. Dragon Disclaimer: Dragon Disclaimer: This electronic medical record was generated, in whole or in part, using a voice recognition dictation system. Departure Departure Impression: Primary Impression: Kidney stone Additional Impression: Renal insufficiency Disposition: 01 HOME, SELF-CARE Condition: STABLE Referrals: SHAWANDA TERRY MD (PCP) Patient Instructions: Chronic Renal Insufficiency, Diet for Kidney Stones, Kidney Stones, [id number] Additional Instructions: Please have your doctor recheck your kidney function (ie BUN/Creatinine) in the next week. Scripts Hydrocodone/Apap 5-325 (NORCO 5-325 TABLET) 1 Each Tablet 0.5-1 TAB PO PRN Q6HRS PRN for PAIN, #10 TAB 0 Refills Prov: ELIO OLIVARES DO 05/13/20 Ondansetron (ONDANSETRON ODT) 4 Mg Tab.rapdis 1 TAB PO PRN Q6-8HRS PRN for NAUSEA, #16 TAB Prov: ELIO OLIVARES DO 05/13/20 Tamsulosin Hcl (FLOMAX) 0.4 Mg Cap.er.24h 1 CAP PO DAILY for 7 Days, #7 CAP Prov: ELIO OLIVARES DO 05/13/20 Justicifation of Admission Dx: Justifications for Admission: Justification of Admission Dx: N/A ELIO OLIVARES DO May 13, 2020 05:36
== END 2020-05-13 06:00 | disposition home or self-care (01) ==
LOC: ER 02:05
DX: N20.0 Calculus of kidney (principal); N28.9 Disorder of kidney and ureter, unspecified; R11.2 Nausea with vomiting, unspecified; E11.9 Type 2 diabetes mellitus without complications; I10 Essential (primary) hypertension; Z90.89 Acquired absence of other organs; Z90.49 Acquired absence of other specified parts of digestive tract; Z98.890 Other specified postprocedural states; Z88.5 Allergy status to narcotic agent
CPT/HCPCS: 36415; 74176; 80053; 81001; 83690; 83735; 85025; 85610; 85730; 96361; 96374; 96375; 99285; J1885; J2405; J2765; J3010; J3490; J7030

== ENCOUNTER → 2020-07-17 | Outpatient (CLI) | payer MEDICARE ==
[~2020-07-17] MED LIST changes: +HYDR-3164 PO; +ONDA4TAB12 PO; +TAMS0.4C97 PO
--- NOTE | 2020-07-17 15:30 | RAD ---
DATE: 07/17/2020 8:47 AM EXAM: MAMMO LUIS FERNANDO SCREENING BILATERAL HISTORY: Screening COMPARISON: 03/31/2019, 02/09/2018 Bilateral CC and MLO views of the breasts were performed. Bilateral breast tomosynthesis was performed in CC and MLO projections. This study was interpreted with the benefit of Computerized Aided Detection (CAD). FINDINGS: Breast Density: SCATTERED The breast parenchyma shows scattered fibroglandular densities. Breast parenchyma level B No suspicious masses, microcalcifications or architectural distortion is present to suggest malignancy in either breast. The visualized axillae are unremarkable. IMPRESSION: No mammographic evidence of malignancy. BI-RADS CATEGORY: 1 NEGATIVE RECOMMENDED FOLLOW-UP: 12M 12 MONTH FOLLOW-UP Annual screening mammography is recommended, unless clinically indicated sooner based on symptoms or change in physical exam. PQRS compliance statement: Patient information was entered into a reminder system with a target due date for the next mammogram. Mammography is a sensitive method for finding small breast cancers, but it does not detect them all and is not a substitute for careful clinical examination. A negative mammogram does not negate a clinically suspicious finding and should not result in delay in biopsying a clinically suspicious abnormality. "Our facility is accredited by the [employer] Mammography Program."
== END | disposition home or self-care (01) ==
LOC: MAMMO 08:45
PROVIDERS: ATTEND Family Medicine
DX: Z12.31 Encounter for screening mammogram for malignant neoplasm of breast (principal)
CPT/HCPCS: 77063; 77067

== ENCOUNTER → 2021-09-04 | Outpatient (CLI) | payer MEDICARE ==
--- NOTE | 2021-09-04 17:01 | RAD ---
Bilateral digital screening 2-D and 3-D (digital breast tomosynthesis) mammogram: Reason for examination: Routine screening. Comparison: Mammograms from 07/17/2020 and 03/31/2019. Interpretation was made with the benefit of CAD. FINDINGS: Breast density: Category B. There are scattered areas of fibroglandular density. No new suspicious breast mass, malignant appearing calcifications, or architectural distortion is see n. There are unchanged small oval circumscribed masses in both breasts. Scarring 11:30 position of th e left breast at posterior depth adjacent to shaped biopsy marker is stable. IMPRESSION: No evidence of malignancy. Assessment: BI-RADS 2. Benign findings. Recommendation: Routine screening mammograms. The patient will receive a letter with the results in the mail. Patient information will be entered i nto the mammography reminder system with a target recall date for the next mammogram. A reminder riccardo er will be generated. Electronically signed by: Harriet Mcdonald MD (09/04/2021 4:59 PM) [id number]
== END ==
LOC: MAMMO 13:58
PROVIDERS: ATTEND Family Medicine
DX: Z12.31 Encounter for screening mammogram for malignant neoplasm of breast (principal); N63.20 Unspecified lump in the left breast, unspecified quadrant; N63.10 Unspecified lump in the right breast, unspecified quadrant
CPT/HCPCS: 77063; 77067